=== PATIENT | female | born 1935 | race Caucasian/White ===

== ENCOUNTER → 2016-10-13 | Outpatient (CLI) | payer MEDICARE, OTHER ==
[~2016-10-13] VITALS: Ht 160 cm; Wt 72.7 kg
[~2016-10-13] MED LIST: ASPI-914 PO; CALC-941 PO; CHOL200024 PO; FISH1CAP2 PO; LATA2.5D7 BOTH EYES; LEVO75TA10 PO; MAGN400C PO; NITR0.4T SL; SERT50TA12 PO; TIMO5DRO7 BOTH EYES
--- NOTE | 2016-10-13 09:58 | DI ---
INDICATION: ITS.REASON: R06.02 SHORTNESS OF BREATH PROCEDURE: CHEST 2-VIEWS UPRIGHT (PA \T\ LAT) Encounter: Initial COMPARISON: None FINDINGS: The lungs are clear without evidence of focal abnormal airspace opacity. There is no pleural effusion or pneumothorax. The heart size, mediastinal contours and pulmonary vascularity are within normal limits. There is no significant skeletal abnormality. IMPRESSION: No acute cardiopulmonary disease. .
== END ==
LOC: RC 07:47
PROVIDERS: ATTEND Internal Medicine Cardiovascular Disease
DX: R06.02 Shortness of breath (principal)
CPT/HCPCS: 94060; 94726